=== PATIENT | male | born 1955 | race Caucasian/White ===

== ENCOUNTER 2020-09-15 23:27 | Emergency (ER) | payer MEDICAID, MEDICARE ==
[2020-09-15] MEDS ORDERED: Sodium Chloride 0.9% 10 ML Syringe FLUSH PRN (23:29)
--- NOTE | 2020-09-15 23:41 | EDM.PDOC ---
ED HPI GENERAL MEDICAL PROBLEM - General Chief Complaint: Neuro Symptoms/Deficits Stated Complaint: MEDICAL VIA THORNDIKE Time Seen by Provider: 09/15/20 23:35 Source of Information: Reports: Patient, EMS. Denies: Old Records History Limitations: Reports: Other (no old records) - History of Present Illness INITIAL COMMENTS - FREE TEXT/NARRATIVE: 65 yo male from an assisted living facility in [place] presents via EMS for stroke sx's that began around 10 pm tonight. He lost what use he had in his L leg, was not able to sit unassisted as he usually can and his speech was more slurred. He also reports a pretty severe [place] for the past couple of days. 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 He states his BP was high at that time. He has improved somewhat tonight since his sx's began, not yet back to his usual neuro status. Was taken off his warfarin just 5 days ago. Is supposed to be on Eliquis. Was just in [facility] a couple days ago. [place] records suggest a hx of afib as the likely cause of his CVA, not aneurysm as patient reports. PMH: CVA '16, HTN, tremors, recurrent falls, vertebral basilar insufficiency, paroxysmal afib, AODM, COPD, BPH, anxiety/depression, hx of DVT, GERD, obstructive sleep apnea(on CPAP), esophageal dysphagia, osteoarthritis. Hx of embolic CVA. Has chronic diplopia. Recent hospitalization in [place] was for acute on chronic CVA. MRI while there did not show anything new. He is scheduled for an outpatient EEG for possible seizure and also a neurology consult. During and before this recent admission he had been seen to have some generalized shaking not associated with LOC or post- ictal period. The episode he experienced tonight sounds much like what he was recently worked up in [place] for. Onset: Today, Sudden Onset Date: 09/15/20 Onset Time: 22:00 Duration: Minutes:, Improving Location: Reports: Upper Extremity, Left, Lower Extremity, Left, Other (speech) Quality: Reports: Other (numbness and weakness) Severity: Moderate Improves with: Reports: Other (time) Worsens with: Reports: Other (unknown) Context: Reports: Other (See HPI) Associated Symptoms: Reports: Headaches (x 2 days), Weakness (L arm and L leg). Denies: Chest Pain Treatments CATERING DRIVER: Reports: Other (see below) (none) Head Pain Score (Numeric/FACES): 9 - Related Data Allergies Allergy/AdvReac Type Severity Reaction Status Date / Time No Known Allergies Allergy Verified 09/15/20 23:35 ED ROS GENERAL - Review of Systems Review Of Systems: See Below Constitutional: Reports: No Symptoms HEENT: Reports: No Symptoms Respiratory: Reports: No Symptoms Cardiovascular: Reports: No Symptoms Endocrine: Reports: No Symptoms GI/Abdominal: Reports: No Symptoms : Reports: No Symptoms Musculoskeletal: Reports: No Symptoms Skin: Reports: No Symptoms Neurological: Reports: Headache (not new), Numbness (L arm, L leg), Trouble Speaking, Change in Speech Psychiatric: Reports: No Symptoms ED EXAM, NEURO - Physical Exam Exam: See Below Exam Limited By: No Limitations General Appearance: Alert, WD/WN, No Apparent Distress Eye Exam: Bilateral Eye: EOMI, Normal Inspection, PERRL Ears: Normal External Exam, Normal Canal, Hearing Grossly Normal Nose: Normal Inspection, No Blood Throat/Mouth: Normal Inspection, Normal Lips, Normal Oropharynx, Other (edentulous, slight slurring) Head Exam: Atraumatic, Normocephalic Neck: Normal Inspection Respiratory/Chest: No Respiratory Distress, Lungs Clear, Normal Breath Sounds, No Accessory Muscle Use Cardiovascular: Regular Rate, Rhythm, No Edema GI/Abdominal: Normal Bowel Sounds, Soft, Non-Tender, No Distention Neurological: Alert, Normal Mood/Affect, Oriented x 3, Other (L arm/hand 1/5 strength, L leg slighter weaker than R, both weak since first CVA). No: No Motor/Sensory Deficits Extremities: Normal Inspection, Non-Tender. No: Normal Range of Motion Psychiatric: Normal Affect, Normal Mood Skin Exam: Warm, Dry, Intact, Normal Color, No Rash Course - Vital Signs Last Recorded V/S: Last Vital Signs Temp 36.6 C 09/15/20 23:29 Pulse 7 L 09/15/20 23:29 Resp 11 L 09/15/20 23:29 BP 119/71 09/15/20 23:29 Pulse Ox 93 L 09/15/20 23:29 - Orders/Labs/Meds Orders: Active Orders 24 hr Category Date Time Status Cardiac Monitoring [RC] .As Directed Care 09/15/20 23:28 Active EKG Documentation Completion [RC] ASDIRECTED Care 09/15/20 23:29 Active Sodium Chloride 0.9% [Saline Flush] Med 09/15/20 23:29 Active 10 ml FLUSH ASDIRECTED PRN Saline Lock Insert [OM.PC] Routine Oth 09/15/20 23:29 Ordered EKG 12 Lead [EK] Routine Ther 09/15/20 23:28 Ordered Medication Orders Sodium Chloride (Saline Flush) 10 ml FLUSH ASDIRECTED PRN PRN Reason: Keep Vein Open Last Admin: 09/16/20 00:11 Dose: 10 ml Documented by: DOLORES Labs: Laboratory Tests 09/15/20 09/15/20 09/16/20 Range/Units 23:37 23:37 00:11 WBC 6.7 (4.5-11.0) K/uL RBC 4.90 (4.30-5.90) M/uL Hgb 13.2 (12.0-15.0) g/dL Hct 41.4 (40.0-54.0) % MCV 85 (80-98) fL MCH 27 (27-31) pg MCHC 32 (32-36) % Plt Count 188 (150-400) K/uL Sodium 138 L (140-148) mmol/L Potassium 4.1 (3.6-5.2) mmol/L Chloride 102 (100-108) mmol/L Carbon Dioxide 29 (21-32) mmol/L Anion Gap 11.1 (5.0-14.0) mmol/L BUN 13 (7-18) mg/dL Creatinine 1.5 H (0.8-1.3) mg/dL Est Cr Clr Drug Dosing 58.68 mL/min Estimated GFR (MDRD) 47 L (>60) Glucose 96 (74-106) mg/dL Calcium 8.7 (8.5-10.1) mg/dL Troponin I < 0.017 (0.000-0.056) ng/mL Urine Color Yellow (YELLOW) Urine Appearance Clear (CLEAR) Urine pH 6.5 (5.0-8.0) Ur Specific [place] >= 1.030 (1.008-1.030) Urine Protein Negative (NEGATIVE) mg/dL Urine Glucose (UA) Negative (NEGATIVE) mg/dL Urine Ketones Negative (NEGATIVE) mg/dL Urine Occult Blood Negative (NEGATIVE) Urine Nitrite Negative (NEGATIVE) Urine Bilirubin Negative (NEGATIVE) Urine Urobilinogen 0.2 (0.2-1.0) EU/dL Ur Leukocyte Esterase Negative (NEGATIVE) Urine RBC 0-5 (0-5) Urine WBC Not seen (0-5) Ur Epithelial Cells Rare Amorphous Sediment Many Urine Bacteria Not seen Urine Mucus Not seen Meds: Medications Generic Name Dose Route Start Last Admin Trade Name Freq PRN Reason Stop Dose Admin Sodium Chloride 10 ml 09/15/20 23:29 09/16/20 00:11 Saline Flush FLUSH 10 ml ASDIRECTED PRN Administration Keep Vein Open Discontinued Medications Generic Name Dose Route Start Last Admin Trade Name Freq PRN Reason Stop Dose Admin Ketorolac Tromethamine 15 mg 09/16/20 00:11 Toradol IVPUSH 09/16/20 00:12 ONETIME ONE - Radiology Interpretation Free Text/Narrative:: Head CT scan- IMPRESSION: No evidence of an acute intracranial hemorrhage, mass effect or loss of badillo- white differentiation. Mild focal increased attenuation in the left supraclinoid carotid may be related to slow flow. If there is concern for evolving left anterior circulation infarct, correlate with MRI. A 7 mm ovoid soft tissue density along the inferolateral aspect of the left cavernous region which may represent focal vascular ectasia. Consider follow-up evaluation. Age indeterminate nasal bone deformities. Mild right mastoid disease. Dictated by Brenden Robles MD @ 09/15/2020 11:57:[address] Results Date: 09/15/20 CT Results Time: 00:15 Departure - Departure Time of Disposition: 01:05 Disposition: Home, Self-Care 01 Condition: Fair Clinical Impression: Chronic neurologic disease, Pseudoseizures - Discharge Information *PRESCRIPTION DRUG MONITORING PROGRAM REVIEWED*: Not Applicable *COPY OF PRESCRIPTION DRUG MONITORING REPORT IN PATIENT DELLA: Not Applicable Instructions: Non-Epileptic Seizures, Adult Referrals: PCP,None [Primary Care Provider] - Forms: ED Department Discharge Additional Instructions: Continue usual cares/meds. Encourage fluids. Keep any scheduled appt's such as with neurology or for EEG's. F/U with your primary care provider. Sepsis Event Note (ED) - Focused Exam Vital Signs: Vital Signs Temp Pulse Resp BP Pulse Ox 09/15/20 23:29 36.6 C 7 L 11 L 119/71 93 L - My Orders Last 24 Hours: My Active Orders 09/15/20 23:28 Cardiac Monitoring [RC] .As Directed EKG 12 Lead [EK] Routine 09/15/20 23:29 EKG Documentation Completion [RC] ASDIRECTED Sodium Chloride 0.9% [Saline Flush] 10 ml FLUSH ASDIRECTED PRN Saline Lock Insert [OM.PC] Routine - Assessment/Plan Last 24 Hours: My Active Orders 09/15/20 23:28 Cardiac Monitoring [RC] .As Directed EKG 12 Lead [EK] Routine 09/15/20 23:29 EKG Documentation Completion [RC] ASDIRECTED Sodium Chloride 0.9% [Saline Flush] 10 ml FLUSH ASDIRECTED PRN Saline Lock Insert [OM.PC] Routine
--- NOTE | 2020-09-15 23:59 | CRLCT ---
INDICATION: CVA. Stroke protocol TECHNIQUE: CT head without contrast. COMPARISON: None available FINDINGS: There is mild age-related cortical atrophy. The ventricles are within normal limits for the patient`s age. A cavum septum pellucidum et vergae is seen. There is no mass effect or midline shift. There is no loss of badillo-white differentiation. There is mild focal increased attenuation in the left supraclinoid carotid on image 26 which may be related to slow flow. There is no evidence of an acute intracranial hemorrhage. There is a 7 mm ovoid density along the inferolateral aspect of the left cavernous region on image 20 of series 4. There are nasal bone fracture lucencies which are age indeterminate. The visualized paranasal sinuses are clear. There is opacification of some right mastoid tip air cells. The visualized orbits are within normal limits. IMPRESSION: No evidence of an acute intracranial hemorrhage, mass effect or loss of badillo-white differentiation. Mild focal increased attenuation in the left supraclinoid carotid may be related to slow flow. If there is concern for evolving left anterior circulation infarct, correlate with MRI. A 7 mm ovoid soft tissue density along the inferolateral aspect of the left cavernous region which may represent focal vascular ectasia. Consider follow-up evaluation. Age indeterminate nasal bone deformities. Mild right mastoid disease. Dictated by Brenden Robles MD @ 09/15/2020 11:57:51 PM Please note that all CT scans at this facility use dose modulation, iterative reconstruction, and/or weight-based dosing when appropriate to reduce radiation dose to as low as reasonably achievable. Dictated by: Brenden Robles MD @ 09/15/2020 23:57:59 (Electronically Signed)
[2020-09-16] MEDS ORDERED: Ketorolac 30 MG/ML SDV IVPUSH ONE (00:11)
== END 2020-09-16 03:12 | disposition home or self-care (01) ==
LOC: JP.ED 23:27
DX: R56.9 Unspecified convulsions (principal); G96.9 Disorder of central nervous system, unspecified; I10 Essential (primary) hypertension; I48.91 Unspecified atrial fibrillation; E11.9 Type 2 diabetes mellitus without complications; J44.9 Chronic obstructive pulmonary disease, unspecified; Z86.73 Personal history of transient ischemic attack (TIA), and cerebral infarction without residual deficits
CPT/HCPCS: 36415; 70450; 80048; 81001; 84484; 85027; 93005; 96374; 99285; J1885; 93010

== ENCOUNTER 2023-06-28 19:04 | Emergency (ER) | payer MEDICARE ==
[2023-06-28 19:20] LABS: BASOPHILS ABSOLUTE AUTO 0.04 K/uL (0.00-0.10); BASOPHILS PERCENT AUTO 0.8 % (0.1-1.3); EOSINOPHILS ABSOLUTE AUTO 0.45 K/uL (0.00-0.40); EOSINOPHILS PERCENT AUTO 9.2 % (0.0-5.4); HEMATOCRIT 40.4 % (38.4-49.7); HEMOGLOBIN 13.3 g/dL (12.9-16.9); IMMATURE GRAN PERCENT AUTO 0.4 % (0.0-0.7); LYMPHOCYTES ABSOLUTE AUTO 1.02 K/uL (0.8-3.3); LYMPHOCYTES PERCENT AUTO 20.8 % (11.4-47.7); MEAN CORPUSCULAR HEMOGLOBIN 29.1 pg (31.6-35.5); MEAN CORPUSCULAR HGB CONC 32.9 g/dL (31.6-35.5); MEAN CORPUSCULAR VOLUME 88.4 fL (81.4-99.0); MONOCYTES ABSOLUTE AUTO 0.44 K/uL (0.20-0.90); NEUTROPHILS ABSOLUTE AUTO 2.93 K/uL (1.0-7.6); NEUTROPHILS PERCENT AUTO 59.8 % (40.0-78.1); PLATELET COUNT,PLT 125 K/uL (130-375); RED BLOOD CELL COUNT 4.57 M/uL (4.14-5.76); WHITE BLOOD CELL COUNT,WBC 4.9 K/uL (3.2-11.0)
[2023-06-28 19:22] LABS: IMMATURE GRAN ABSOLUTE AUTO 0.02 K/uL (0.00-0.23)
[2023-06-28 19:35] LABS: BLOOD UREA NITROGEN,BUN 9 mg/dL (7-18); CALCIUM 8.4 mg/dL (8.5-10.1); CARBON DIOXIDE,CO2 33 mmol/L (21-32); CHLORIDE,CL 102 mmol/L (100-108); CREATININE 1.1 mg/dL (0.8-1.3); ESTIMATED GFR 73 mL/min (>60); GLUCOSE RANDOM 92 mg/dL (74-106); POTASSIUM,K 3.6 mmol/L (3.6-5.2); SODIUM,NA 141 mmol/L (140-148)
[2023-06-28 19:37] LABS: ANION GAP 9.6 mmol/L (5.0-14.0)
[2023-06-28 20:53] LABS: APPEARANCE,URINE CLEAR (CLEAR); BILIRUBIN,URINE NEGATIVE (NEGATIVE); COLOR,URINE YELLOW (YELLOW); GLUCOSE,URINE NEGATIVE (NEGATIVE); KETONES,URINE NEGATIVE (NEGATIVE); LEUKOCYTE ESTERASE,URINE NEGATIVE (NEGATIVE); NITRITE,URINE NEGATIVE (NEGATIVE); OCCULT BLOOD,URINE NEGATIVE (NEGATIVE); PH,URINE 6.5 (5.0-8.0); PROTEIN,URINE TRACE mg/dL (NEGATIVE)
[2023-06-28 20:58] LABS: AMORPHOUS SEDIMENT,URINE NOT SEEN; BACTERIA,URINE RARE; EPITHELIAL CELLS,URINE MODERATE; MUCUS,URINE FEW; RBC,URINE 0-5 (0-5); WBC,URINE NOT SEEN (0-5)
== END 2023-06-28 23:12 | disposition home or self-care (01) ==
LOC: JP.ED 19:04
DX: S00.83XA Contusion of other part of head, initial encounter (principal); M25.512 Pain in left shoulder; I10 Essential (primary) hypertension; I48.91 Unspecified atrial fibrillation; E78.00 Pure hypercholesterolemia, unspecified; J44.9 Chronic obstructive pulmonary disease, unspecified; E11.9 Type 2 diabetes mellitus without complications; Z94.7 Corneal transplant status; Z79.01 Long term (current) use of anticoagulants; Z79.899 Other long term (current) drug therapy; W05.0XXA Fall from non-moving wheelchair, initial encounter
CPT/HCPCS: 36415; 70450; 73030; 80048; 81001; 85025; 99285; C1758

== ENCOUNTER 2023-06-30 16:10 | Emergency (ER) | payer MEDICARE ==
[2023-06-30] MEDS ORDERED: traMADol 50 MG Tab PO ONE (17:05)
== END 2023-06-30 20:20 ==
LOC: JP.ED 16:10
DX: R29.6 Repeated falls (principal); I11.0 Hypertensive heart disease with heart failure; I50.9 Heart failure, unspecified; E78.00 Pure hypercholesterolemia, unspecified; I48.91 Unspecified atrial fibrillation; K21.9 Gastro-esophageal reflux disease without esophagitis; E11.9 Type 2 diabetes mellitus without complications; J44.9 Chronic obstructive pulmonary disease, unspecified; Z79.01 Long term (current) use of anticoagulants; Z79.899 Other long term (current) drug therapy; Z86.73 Personal history of transient ischemic attack (TIA), and cerebral infarction without residual deficits
CPT/HCPCS: 70450; 99284; A9270